=== PATIENT | female | born 1960 | race Caucasian/White ===

== ENCOUNTER 2017-05-15 22:13 | Emergency (ER) | payer OTHER ==
[2017-05-15 22:35] VITALS: BP 160/107; PULSE 84; TEMP 98.6; BMI 30.1
--- NOTE | 2017-05-15 23:49 | PDOC ---
History of Present Illness - General Chief Complaint: Blood Pressure Problem Stated Complaint: BLOOD PRESSURE Time Seen by Provider: 05/15/17 23:25 Past History - Past Medical History Allergies/Adverse Reactions: Allergies Allergy/AdvReac Type Severity Reaction Status Date / Time No Known Allergies Allergy Verified 05/15/17 22:35 Home Medications: Ambulatory Orders Aspirin [ASA -] 81 mg PO DAILY 03/22/16 COPD: No - Suicide/Smoking/Psychosocial Hx Smoking History: Never smoked Have you smoked in the past 12 months: No Information on smoking cessation initiated: No Hx Alcohol Use: No Drug/Substance Use Hx: No Substance Use Type: None *Physical Exam - Vital Signs Last Vital Signs Temp Pulse Resp BP Pulse Ox 98.6 F 84 18 160/107 96 05/15/17 22:30 05/15/17 22:30 05/15/17 22:30 05/15/17 22:30 05/15/17 22:30 Heart Score/ECG Review - Electrocardiogram EKG: Normal - Age Age: 45-65 - Risk Factors Risk Factors Heart Score: Yes Hx Hypertension Based on the list above the patient has:: 1-2 risk factors - ECG Intrepretation Rhythm: Regular Rhythm - Flushing Flushing: Normal - P and OR Atrial Enlargement: Left Delta Wave(s) Present: No WPW: No - QRS Poor R Wave Progression: No Q Wave Present: No - ST and T Early Repolarization: No Non Specific ST-T Wave changes: No Flattened T Waves: No Prolonged Q-T Interval: No - ECG Impressions Normal ECG: Yes Non-specific ST Elevation: No Ischemic Changes: No Bradycardia: No Torsades shannon Pointes: No Medical Decision Making - Medical Decision Making 05/16/17 00:20 Repeat blood pressure 150/90 56-year-old female was recently seen by Dr. David glover and had a normal stress test on May 10. Patient came in this evening because she was told by Dr. Hernandez to keep a blood pressure diary and she took her blood pressure at home and it was elevated. She stated that she felt kind of funny, which with vague symptoms that were not substernal chest pain, significant shortness of breath or visual changes or nausea or vomiting or headache. In reviewing her vital signs the past several years. She has had high blood pressure at each visit. She is not on any blood pressure medications at this time. The plan with her primary doctor is for her to bring in her blood pressure diary and at that time they will decide on what medications if any. She will be placed on. She has an appointment this week with Dr. Hernandez. EKG shows normal sinus rhythm at 64 bpm, with no signs of acute ischemia. Patient does have chronic essential hypertension but is essentially asymptomatic at this time will be discharged home with office follow-up *DC/Admit/Observation/Transfer Diagnosis at time of Disposition: Hypertension Qualifiers: Hypertension type: essential hypertension Qualified Code(s): I10 - Essential ( primary) hypertension - Discharge Dispostion Disposition: HOME Condition at time of disposition: Stable - Referrals Referrals: Diane Arceo MD [Primary Care Provider] - - Patient Instructions Printed Discharge Instructions: DI for High Blood Pressure - Post Discharge Activity
--- NOTE | 2017-05-16 16:41 | EKG ---
Test Reason : Blood Pressure : / mmHG Vent. Rate : 064 BPM Atrial Rate : 064 BPM P-R Int : 152 ms QRS Dur : 082 ms QT Int : 418 ms P-R-T Axes : 059 016 025 degrees QTc Int : 431 ms NORMAL SINUS RHYTHM POSSIBLE LEFT ATRIAL ENLARGEMENT BORDERLINE ECG WHEN COMPARED WITH ECG OF 22-MAR-2016 00:40, NONSPECIFIC T WAVE ABNORMALITY, IMPROVED IN ANTERIOR LEADS Confirmed by MD Joie, Austyn ([id number]) on 05/16/2017 4:41:15 PM Referred By: Confirmed By:Austyn Salter MD
== END 2017-05-16 00:23 | disposition home or self-care (01) ==
LOC: JER 22:13
DX: I10 Essential (primary) hypertension (principal)
CPT/HCPCS: 93005; 93010; 99281-25